=== PATIENT | male | born 1950 | race American Indian/Alaskan Native ===

== ENCOUNTER 2020-01-25 13:20 | Emergency (ER) | payer MEDICARE ==
[2020-01-25 13:31] VITALS: BP 147/72
--- NOTE | 2020-01-25 14:55 | Emergency Department Report ---
ED General Adult HPI - General Chief complaint: Fall Stated complaint: PORT/BLEEDING Time Seen by Provider: 01/25/20 13:35 Source: patient, EMS Mode of arrival: Stretcher Limitations: Other - History of Present Illness Initial comments: 69-year-old male, history of ESRD, blindness, presents to ED following a fall while at dialysis. Patient states he was lying on the stretcher and somehow lost his balance and fell out of the stretcher. Patient denies passing out. A piece of patient's dialysis port actually broke off during the fall, and it is reported that patient lost a significant amount of blood. The port was clamped off with hemostat by someone in the dialysis center and patient was transported via EMS to the ED. Patient reports some mild lower back pain from the fall. Patient reportedly had received approximately 2 hours of dialysis at the time of the fall. -: This afternoon Location: back Severity scale (0 -10): 0 Consistency: constant Associated Symptoms: denies other symptoms Treatments Prior to Arrival: none - Related Data Home Medications Medication Instructions Recorded Confirmed Last Taken Aspirin [Aspirin BABY CHEW TAB] 81 mg PO QDAY 09/01/13 06/25/14 02/05/14 Cholecalciferol (Vitamin D3) 1 tab PO QDAY 09/01/13 06/25/14 02/05/14 [Vitamin D3] Cinacalcet [Sensipar] 30 mg PO QDAY 09/01/13 06/25/14 02/05/14 Gabapentin 300 mg PO BID 09/01/13 06/25/14 02/05/14 Pantoprazole [Protonix TAB] 40 mg PO QDAY 09/01/13 06/25/14 02/05/14 sevelamer HCL [Renagel] 800 mg PO TID 09/01/13 06/25/14 02/05/14 Previous Rx's Medication Instructions Recorded Last Taken Type Rivastigmine [Exelon Patch 4.6 mg TD QDAY #30 patch 06/29/14 Unknown Rx 4.6mg/24hr] Aspirin 81 mg PO QDAY #30 tablet 12/03/15 Unknown Rx Folic Acid [Folvite] 1 mg PO QDAY #30 tablet 12/03/15 Unknown Rx Metoprolol [Lopressor TAB] 12.5 mg PO BID #60 tablet 12/05/15 Unknown Rx levoFLOXacin [Levaquin] 250 mg PO Q48H #3 tablet 12/05/15 Unknown Rx Allergies Allergy/AdvReac Type Severity Reaction Status Date / Time No Known Allergies Allergy Verified 06/25/14 13:50 ED Review of Systems ROS: Stated complaint: PORT/BLEEDING Other details as noted in HPI Comment: All other systems reviewed and negative Musculoskeletal: back pain ED Past Medical Hx - Past Medical History Hx Hypertension: Yes Hx CVA: Yes Hx Congestive Heart Failure: No Hx Diabetes: Yes Hx Renal Disease: Yes (hemodialysis) Hx Asthma: No Hx COPD: No Hx Dementia: Yes Hx HIV: No - Surgical History Additional Surgical History: dialysis shunt left upper arm - Social History Smoking Status: Never Smoker Substance Use Type: None - Medications Home Medications: Home Medications Medication Instructions Recorded Confirmed Last Taken Type Aspirin [Aspirin BABY CHEW TAB] 81 mg PO QDAY 09/01/13 06/25/14 02/05/14 History Cholecalciferol (Vitamin D3) 1 tab PO QDAY 09/01/13 06/25/14 02/05/14 History [Vitamin D3] Cinacalcet [Sensipar] 30 mg PO QDAY 09/01/13 06/25/14 02/05/14 History Gabapentin 300 mg PO BID 09/01/13 06/25/14 02/05/14 History Pantoprazole [Protonix TAB] 40 mg PO QDAY 09/01/13 06/25/14 02/05/14 History sevelamer HCL [Renagel] 800 mg PO TID 09/01/13 06/25/14 02/05/14 History Rivastigmine [Exelon Patch 4.6 mg TD QDAY #30 patch 06/29/14 Unknown Rx 4.6mg/24hr] Aspirin 81 mg PO QDAY #30 tablet 12/03/15 Unknown Rx Folic Acid [Folvite] 1 mg PO QDAY #30 tablet 12/03/15 Unknown Rx Metoprolol [Lopressor TAB] 12.5 mg PO BID #60 tablet 12/05/15 Unknown Rx levoFLOXacin [Levaquin] 250 mg PO Q48H #3 tablet 12/05/15 Unknown Rx ED Physical Exam - General Limitations: Other General appearance: alert, in no apparent distress - Head Head exam: Present: atraumatic, normocephalic - ENT ENT exam: Present: mucous membranes moist - Neck Neck exam: Present: normal inspection - Respiratory Respiratory exam: Present: normal lung sounds bilaterally. Absent: respiratory distress - Cardiovascular Cardiovascular Exam: Present: regular rate, normal rhythm, other (vas cath located in left upper chest wall with end piece broken off of the blue port) - GI/Abdominal GI/Abdominal exam: Present: soft. Absent: distended, tenderness - Extremities Exam Extremities exam: Present: normal inspection - Neurological Exam Neurological exam: Present: alert, oriented X3 - Psychiatric Psychiatric exam: Present: normal affect, normal mood - Skin Skin exam: Present: warm, dry, intact, normal color ED Course Vital Signs 01/25/20 01/25/20 01/25/20 13:25 13:28 13:31 Temperature 98.1 F Pulse Rate 93 H 83 80 Respiratory 14 13 13 Rate Blood Pressure 147/72 Blood Pressure 147/72 [Right] O2 Sat by Pulse 91 98 97 Oximetry 01/25/20 01/25/20 01/25/20 14:01 14:31 15:01 Temperature Pulse Rate 77 82 79 Respiratory 12 15 14 Rate Blood Pressure 147/72 147/72 147/72 Blood Pressure [Right] O2 Sat by Pulse 99 74 L 97 Oximetry 01/25/20 01/25/20 16:43 16:44 Temperature Pulse Rate 79 Respiratory 14 14 Rate Blood Pressure 147/72 Blood Pressure [Right] O2 Sat by Pulse 97 97 Oximetry - Consultations Consultation #1: 01/25/20 14:38 Spoke w/ Dr Burgos. States he will take pt to [facility] and change out vas cath. ED Medical Decision Making - Lab Data Result diagrams: 01/25/20 14:28 01/25/20 14:28 - Radiology Data Radiology results: report reviewed, image reviewed - Medical Decision Making 69-year-old male presents to ED following a fall while at dialysis. This was a stated in part of his Vas-Cath breaking off. Patient reportedly had significant blood loss from the Vas-Cath, which was subsequently clamped off. Patient reported some mild back pain due to the fall. Lumbar films are unremarkable. Potassium is normal. Hemoglobin is 10. Vitals are stable. Patient was taken to [facility] by vascular surgeon to change out his Vas-Cath. Patient does not require further dialysis at this time. Will discharge home. Patient may return to regular dialysis schedule. - Differential Diagnosis Vas-Cath complication, hyperkalemia, fracture, back strain Critical care attestation.: If time is entered above; I have spent that time in minutes in the direct care of this critically ill patient, excluding procedure time. ED Disposition Clinical Impression: Complication of vascular access for dialysis, Acute lumbosacral myofascial strain Disposition: TO HOME OR SELFCARE Is pt being admited?: No Condition: Stable Instructions: Muscle Strain (ED), Tunneled Central Lines Adult (ED) Referrals: PRIMARY CARE, [Primary Care Provider] - 3-5 Days Time of Disposition: 17:31
[2020-01-25 14:59] LABS: Hematocrit 32.4 % (35.5-45.6); Hemoglobin 10.9 gm/dl (11.8-15.2); Mean Corpuscular HGB Conc 34 % (32-34); Mean Corpuscular Volume 90 fl (84-94); Red Blood Count 3.59 M/mm3 (3.65-5.03); Red Cell Distribution Width 15.7 % (13.2-15.2)
[2020-01-25 15:00] LABS: Platelet Count 52 K/mm3 (140-440)
[2020-01-25 15:14] LABS: INR 1.04 (0.87-1.13)
[2020-01-25 15:15] LABS: Partial Thromboplastin Time 43.3 Sec. (24.2-36.6)
[2020-01-25 15:26] LABS: Calcium 8.3 mg/dL (8.4-10.2)
--- NOTE | 2020-01-25 15:40 | XRay Report ---
CLINICAL DATA: fall, injury TECHNICAL DATA: AP and lateral views lumbar spine. FINDINGS: The bone mineralization is normal. Vertebral body heights are normal. Intervertebral disc spaces are well maintained. Small anterior osteophytes are present L2-3 L3-4 and L4-5. Mild facet degenerative c hanges present L4-5 and L5-S1 Pedicles and spinous processes are normal in alignment. SI joints and s acrum are normal. IMPRESSION: Mild degenerative changes lumbar spine as noted Signer Name: Ronen Jean MD Signed: 01/25/2020 3:36 PM Workstation Name: [id number]
--- NOTE | 2020-01-25 15:40 | Consultation ---
History of Present Illness - Reason for Consult Consult date: 01/25/20 malfunctioning permcath Requesting physician: HARPREET PINK - History of Present Illness HPI: 69yo male with ESRD on HD via left IJ permcath presents from his dialysis center after a portion of his catheter fell apart and started bleeding. The bleeding was controlled by a hemostat. Vascular has been consulted for replacement of his access. The patient with no other complaints. ROS: as per HPI otherwise negative PE: NAD, A&Ox3 RRR non-labored respirations left IJ permcath intact with portion of the blue port missing and clamped with a hemostat catheter exit site clean and dry Plan: We will take patient to [facility] today for catheter exchange Medications and Allergies Allergies Allergy/AdvReac Type Severity Reaction Status Date / Time No Known Allergies Allergy Verified 06/25/14 13:50 Home Medications Medication Instructions Recorded Confirmed Last Taken Type Aspirin [Aspirin BABY CHEW TAB] 81 mg PO QDAY 09/01/13 06/25/14 02/05/14 History Cholecalciferol (Vitamin D3) 1 tab PO QDAY 09/01/13 06/25/14 02/05/14 History [Vitamin D3] Cinacalcet [Sensipar] 30 mg PO QDAY 09/01/13 06/25/14 02/05/14 History Gabapentin 300 mg PO BID 09/01/13 06/25/14 02/05/14 History Pantoprazole [Protonix TAB] 40 mg PO QDAY 09/01/13 06/25/14 02/05/14 History sevelamer HCL [Renagel] 800 mg PO TID 09/01/13 06/25/14 02/05/14 History Rivastigmine [Exelon Patch 4.6 mg TD QDAY #30 patch 06/29/14 Unknown Rx 4.6mg/24hr] Aspirin 81 mg PO QDAY #30 tablet 12/03/15 Unknown Rx Folic Acid [Folvite] 1 mg PO QDAY #30 tablet 12/03/15 Unknown Rx Metoprolol [Lopressor TAB] 12.5 mg PO BID #60 tablet 12/05/15 Unknown Rx levoFLOXacin [Levaquin] 250 mg PO Q48H #3 tablet 12/05/15 Unknown Rx Exam - Constitutional Vitals: Temp Pulse Resp BP Pulse Ox 98.1 F 83 13 147/72 98 08/03/20 13:28 01/25/20 13:28 01/25/20 13:28 01/25/20 13:28 01/25/20 13:28 Results - Labs CBC & Chem 7: 01/25/20 14:28 01/25/20 14:28 Labs: Abnormal lab results 01/25/20 01/25/20 01/25/20 Range/Units 14:28 14:28 14:49 WBC 2.2 L (4.5-11.0) K/mm3 RBC 3.59 L (3.65-5.03) M/mm3 Hgb 10.9 L (11.8-15.2) gm/dl Hct 32.4 L (35.5-45.6) % RDW 15.7 H (13.2-15.2) % Plt Count 52 L (140-440) K/mm3 APTT 43.3 H (24.2-36.6) Sec. BUN 36 H (9-20) mg/dL Creatinine 4.5 H (0.8-1.3) mg/dL Glucose 111 H (75-100) mg/dL Calcium 8.3 L (8.4-10.2) mg/dL
[2020-01-25 15:58] LABS: Anisocytosis 1+; Basophils % (Manual) 0 % (0.0-1.8); Eosinophils % (Manual) 0 % (0.0-4.3); Total Cells Counted 100
[2020-01-25] MEDS ORDERED: LIDOCAINE 1%/EPINEPHRINE 1:100,000 VIAL (20 ML) INFILTRATI ONE (16:43)
[2020-01-25] MEDS ORDERED: HEPARIN/NS 5000 UNIT/500ML 500 ML IR ONE (16:43)
[2020-01-25] MEDS ORDERED: MIDAZOLAM 2 MG/2 ML INJ ONE (16:43)
[2020-01-25] MEDS ORDERED: fentaNYL 100 MCG/2 ML INJ ONE (16:43)
[2020-01-25] MEDS: HEPARIN 10,000 UNITS/10 ML VIAL ONE ×3 (17:00→17:03)
--- NOTE | 2020-01-25 17:08 | Post Operative Note ---
Date of procedure: 01/25/20 Pre-op diagnosis: ESRD Post-op diagnosis: same Procedure: Left IJ Permcath Exchange Anesthesia: MAC, local Surgeon: TAMY WATSON Estimated blood loss: minimal Pathology: none Condition: stable Disposition: floor
--- NOTE | 2020-01-25 17:52 | Operative Report ---
STAFF SURGEON: Dr. Fabian Burgos. PREOPERATIVE DIAGNOSIS: End-stage renal disease. POSTOPERATIVE DIAGNOSIS: End-stage renal disease. PROCEDURE PERFORMED: Left IJ PermCath exchange. COMPLICATIONS: None. ESTIMATED BLOOD LOSS: Less than 10 mL. ANESTHESIA: Local MAC. INDICATIONS FOR PROCEDURE: This is a 69-year-old gentleman with end-stage renal disease, on hemodialysis via left IJ PermCath, who presented to the Emergency Department from his dialysis center after portions of his catheter fell apart, which led to bleeding from his catheter. The bleeding was controlled with a hemostat and the patient was sent for further evaluation, so that the patient would benefit from a catheter exchange. The patient was explained the risks, benefits and alternatives of procedure, expressed understanding and wished to proceed. DESCRIPTION OF PROCEDURE: After appropriate consent was obtained, the patient was brought back to the labor commissioner, placed on table in supine position. The left neck and chest were prepped and draped in the usual sterile fashion with ChloraPrep. Appropriate timeout was performed indicating correct patient, procedure, and site of procedure. We then began the intervention by freeing up the cuff of the existing catheter with a hemostat. Then, a Bentson wire was placed into the inferior vena cava. The catheter was removed over the wire. Wire was then wiped down with three swipes of Betadine-soaked gauze and then three swipes of saline soaked gauze. We then proceeded to place a 27 cm straight PermCath over the wire into the SVC. The wire was removed. Both lumens jluis blood appropriately, were flushed with heparinized saline. Appropriate amount of heparin was placed in each port. Catheter was then sutured in place with a 3-0 nylon and appropriate dressing was placed. The patient tolerated the procedure well, emerged from the conscious sedation and was sent to recovery in stable condition. JOB# [id number] N/ISHMAEL
== END 2020-01-25 23:36 | disposition home or self-care (01) ==
LOC: ED 13:20
DX: S39.012A Strain of muscle, fascia and tendon of lower back, initial encounter (principal); T82.868A Thrombosis due to vascular prosthetic devices, implants and grafts, initial encounter; I10 Essential (primary) hypertension; E11.9 Type 2 diabetes mellitus without complications; F03.90 Unspecified dementia, unspecified severity, without behavioral disturbance, psychotic disturbance, mood disturbance, and anxiety; F17.200 Nicotine dependence, unspecified, uncomplicated; X58.XXXA Exposure to other specified factors, initial encounter; Y93.89 Activity, other specified; Y92.89 Other specified places as the place of occurrence of the external cause; Y99.8 Other external cause status
CPT/HCPCS: 36415; 36581; 72100; 77001; 80048; 85007; 85025; 85610; 85730; 96374; 96375; 99284; C1750; C1769; J1644; J2250; J3010

== ENCOUNTER 2020-02-22 14:00 | Emergency (ER) | payer MEDICARE ==
--- NOTE | 2020-02-22 16:43 | XRay Report ---
CHEST 1 VIEW INDICATION: sent from dialysis for dislodged port. COMPARISON: 02/01/2020 FINDINGS: SUPPORT DEVICES: Left IJ PermCath with tip at the cavoatrial junction. HEART: Within normal limits. LUNGS/PLEURA: Mild interstitial edema. No appreciable effusion. No pneumothorax. ADDITIONAL FINDINGS: None. IMPRESSION: 1. Mild interstitial edema. Signer Name: Enoch Robins MD Signed: 02/22/2020 4:38 PM Workstation Name: [id number]
[2020-02-22 16:50] LABS: Basophils % (Auto) 0.6 % (0.0-1.8); Eosinophils % (Auto) 1.3 % (0.0-4.3); Hematocrit 24.3 % (35.5-45.6); Hemoglobin 8.1 gm/dl (11.8-15.2); Lymphocytes # (Auto) 0.7 K/mm3 (1.2-5.4); Lymphocytes % (Auto) 20.4 % (13.4-35.0); Mean Corpuscular HGB Conc 33 % (32-34); Mean Corpuscular Volume 90 fl (84-94); Monocytes # (Auto) 0.5 K/mm3 (0.0-0.8); Monocytes % (Auto) 15.7 % (0.0-7.3); Platelet Count 108 K/mm3 (140-440); Red Cell Distribution Width 16.2 % (13.2-15.2)
[2020-02-22 17:00] LABS: INR 1.02 (0.87-1.13)
[2020-02-22 17:01] LABS: Partial Thromboplastin Time 32.5 Sec. (24.2-36.6)
[2020-02-22 17:02] LABS: Calcium 8.2 mg/dL (8.4-10.2)
--- NOTE | 2020-02-22 17:22 | Emergency Department Report ---
ED General Adult HPI - General Chief complaint: Medical Clearance Stated complaint: DISLOGGED PORT Time Seen by Provider: 02/22/20 15:35 Source: EMS Mode of arrival: Stretcher Limitations: No Limitations - History of Present Illness Initial comments: 69-year-old male presents from dialysis for dislodged dialysis catheter. Patient did complete dialysis. As per EMS report to nurse patient was bleeding from insertion site of dialysis catheter. No bleeding noted upon ED arrival. Patient is oriented to self only. States year is 2001, he does not know where he is, or why he was sent here, where he just came from. As per medical record patient has a history of dementia. As per medical record review patient had a left permacath exchange performed January 24 when he presented to the ED with a damage catheter secondary to fall. Route Salesman And Driver: Dr. Darby Severity scale (0 -10): 0 - Related Data Home Medications Medication Instructions Recorded Confirmed Last Taken Aspirin [Aspirin BABY CHEW TAB] 81 mg PO QDAY 09/01/13 06/25/14 02/05/14 Cholecalciferol (Vitamin D3) 1 tab PO QDAY 09/01/13 06/25/14 02/05/14 [Vitamin D3] Cinacalcet [Sensipar] 30 mg PO QDAY 09/01/13 06/25/14 02/05/14 Gabapentin 300 mg PO BID 09/01/13 06/25/14 02/05/14 Pantoprazole [Protonix TAB] 40 mg PO QDAY 09/01/13 06/25/14 02/05/14 sevelamer HCL [Renagel] 800 mg PO TID 09/01/13 06/25/14 02/05/14 Previous Rx's Medication Instructions Recorded Last Taken Type Rivastigmine [Exelon Patch 4.6 mg TD QDAY #30 patch 06/29/14 Unknown Rx 4.6mg/24hr] Aspirin 81 mg PO QDAY #30 tablet 12/03/15 Unknown Rx Folic Acid [Folvite] 1 mg PO QDAY #30 tablet 12/03/15 Unknown Rx Metoprolol [Lopressor TAB] 12.5 mg PO BID #60 tablet 12/05/15 Unknown Rx levoFLOXacin [Levaquin] 250 mg PO Q48H #3 tablet 12/05/15 Unknown Rx Allergies Allergy/AdvReac Type Severity Reaction Status Date / Time No Known Allergies Allergy Verified 06/25/14 13:50 ED Review of Systems ROS: Stated complaint: DISLOGGED PORT Other details as noted in HPI Comment: All other systems reviewed and negative ED Past Medical Hx - Past Medical History Previous Medical History?: Yes Hx Hypertension: Yes Hx CVA: Yes Hx Congestive Heart Failure: No Hx Diabetes: Yes Hx Renal Disease: Yes (hemodialysis) Hx Asthma: No Hx COPD: No Hx Dementia: Yes Hx HIV: No - Surgical History Additional Surgical History: dialysis shunt left upper arm - Social History Smoking Status: Former Smoker Substance Use Type: None - Medications Home Medications: Home Medications Medication Instructions Recorded Confirmed Last Taken Type Aspirin [Aspirin BABY CHEW TAB] 81 mg PO QDAY 09/01/13 06/25/14 02/05/14 History Cholecalciferol (Vitamin D3) 1 tab PO QDAY 09/01/13 06/25/14 02/05/14 History [Vitamin D3] Cinacalcet [Sensipar] 30 mg PO QDAY 09/01/13 06/25/14 02/05/14 History Gabapentin 300 mg PO BID 09/01/13 06/25/14 02/05/14 History Pantoprazole [Protonix TAB] 40 mg PO QDAY 09/01/13 06/25/14 02/05/14 History sevelamer HCL [Renagel] 800 mg PO TID 09/01/13 06/25/14 02/05/14 History Rivastigmine [Exelon Patch 4.6 mg TD QDAY #30 patch 06/29/14 Unknown Rx 4.6mg/24hr] Aspirin 81 mg PO QDAY #30 tablet 12/03/15 Unknown Rx Folic Acid [Folvite] 1 mg PO QDAY #30 tablet 12/03/15 Unknown Rx Metoprolol [Lopressor TAB] 12.5 mg PO BID #60 tablet 12/05/15 Unknown Rx levoFLOXacin [Levaquin] 250 mg PO Q48H #3 tablet 12/05/15 Unknown Rx ED Physical Exam - General Limitations: No Limitations - Other Other exam information: General: No acute distress Head: Atraumatic Eyes: normal appearance ENT: Moist mucous membranes Neck: Normal appearance Chest: Clear to auscultation bilaterally. Left chest wall catheter with no bleeding at skin site. Tubes and caps in place. CV: Regular rate and rhythm Abdomen: Soft, normal bowel sounds, nontender, nondistended, no rebound or guarding Back: Normal inspection Extremity: Normal inspection, full range of motion Neuro: Alert O x 1 Psych: Appropriate behavior Skin: No rash ED Course Vital Signs 02/22/20 02/22/20 02/22/20 14:28 14:30 15:00 Temperature 97.7 F Pulse Rate 88 Respiratory 17 Rate Blood Pressure 147/70 147/70 Blood Pressure 147/70 [Right] O2 Sat by Pulse 98 98 98 Oximetry 02/22/20 02/22/20 02/22/20 15:30 16:00 16:30 Temperature Pulse Rate Respiratory Rate Blood Pressure 148/70 154/78 131/67 Blood Pressure [Right] O2 Sat by Pulse 99 98 97 Oximetry - Consultations Consultation #1: 02/22/20 18:[address] Leone high school chemistry teacher who is not familiar as to why patient was sent to the ED. He is informed that there is no current bleeding and the cath was recently changed and labs unremarkable. Patient will be discharged ED Medical Decision Making - Lab Data Result diagrams: 02/22/20 16:18 02/22/20 16:18 Lab Results 02/22/20 02/22/20 02/22/20 Range/Units 16:18 16:18 16:18 WBC 3.4 L (4.5-11.0) K/mm3 RBC 2.70 L (3.65-5.03) M/mm3 Hgb 8.1 L (11.8-15.2) gm/dl Hct 24.3 L (35.5-45.6) % MCV 90 (84-94) fl MCH 30 (28-32) pg MCHC 33 (32-34) % RDW 16.2 H (13.2-15.2) % Plt Count 108 L (140-440) K/mm3 Lymph % (Auto) 20.4 (13.4-35.0) % Bonner % (Auto) 15.7 H (0.0-7.3) % Eos % (Auto) 1.3 (0.0-4.3) % Baso % (Auto) 0.6 (0.0-1.8) % Lymph # 0.7 L (1.2-5.4) K/mm3 Bonner # 0.5 (0.0-0.8) K/mm3 Eos # 0.0 (0.0-0.4) K/mm3 Baso # 0.0 (0.0-0.1) K/mm3 Seg Neutrophils % 62.0 (40.0-70.0) % Seg Neutrophils # 2.1 (1.8-7.7) K/mm3 PT 13.5 (12.2-14.9) Sec. INR 1.02 (0.87-1.13) APTT 32.5 (24.2-36.6) Sec. Sodium 138 (137-145) mmol/L Potassium 3.9 (3.6-5.0) mmol/L Chloride 96.1 L (98-107) mmol/L Carbon Dioxide 30 (22-30) mmol/L Anion Gap 16 mmol/L BUN 10 (9-20) mg/dL Creatinine 3.2 H (0.8-1.3) mg/dL Estimated GFR 23 ml/min BUN/Creatinine Ratio 3 % Glucose 93 (75-100) mg/dL Calcium 8.2 L (8.4-10.2) mg/dL - Medical Decision Making Patient presents with bleeding at the catheter site which has resolved since ar rival to the ED. Patient was in the ED for several hours without recurrent bleeding. Labs without significant abnormality. Case because of the high school chemistry teacher. Patient will be discharged home Critical Care Time: No Critical care attestation.: If time is entered above; I have spent that time in minutes in the direct care of this critically ill patient, excluding procedure time. ED Disposition Clinical Impression: Dementia, Hemorrhage from dialysis catheter Disposition: TO HOME OR SELFCARE Is pt being admited?: No Does the pt Need Aspirin: No Condition: Stable Instructions: Hemodialysis (ED) Referrals: KATHI DARBY MD [Staff Physician] - 3-5 Days Time of Disposition: 18:34
[2020-02-23 07:50] VITALS: BP 162/76
== END 2020-02-23 09:39 | disposition home or self-care (01) ==
LOC: ED 14:00
DX: T82.838A Hemorrhage due to vascular prosthetic devices, implants and grafts, initial encounter (principal); F03.90 Unspecified dementia, unspecified severity, without behavioral disturbance, psychotic disturbance, mood disturbance, and anxiety; I10 Essential (primary) hypertension; E11.9 Type 2 diabetes mellitus without complications; Z98.890 Other specified postprocedural states; Z87.891 Personal history of nicotine dependence; Z86.73 Personal history of transient ischemic attack (TIA), and cerebral infarction without residual deficits; Z79.2 Long term (current) use of antibiotics; Z79.899 Other long term (current) drug therapy; Y92.89 Other specified places as the place of occurrence of the external cause
CPT/HCPCS: 36415; 71045; 80048; 82962; 85025; 85610; 85730